=== PATIENT | male | born 1960 | race Caucasian/White ===

== ENCOUNTER 2018-03-25 18:18 | Emergency (ER) | payer MEDICAID ==
[~2018-03-25] VITALS: Ht 175.3 cm; Wt 88.5 kg
[2018-03-25 18:20] VITALS: BP 137/85
[2018-03-25] MEDS ORDERED: Ketorolac 30mg Inj IM ONE (18:30)
[2018-03-25] MEDS ORDERED: Methocarbamol 500mg tab ORAL ONE (18:30)
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
[2018-03-25] MEDS ORDERED: LIDOCAINE700 M1 TP (19:48)
[2018-03-25] MEDS ORDERED: TYLENOL EXTRA500 MG ORAL (19:48)
[2018-03-25] MEDS ORDERED: ROBAXIN500 MG PO (19:48)
[2018-03-25 20:00] VITALS: BP 130/60
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
== END 2018-03-25 20:03 | disposition home or self-care (01) ==
LOC: EDBD 18:18 → EMR 20:03
DX: S13.9XXA Sprain of joints and ligaments of unspecified parts of neck, initial encounter (principal); V43.52XA Car driver injured in collision with other type car in traffic accident, initial encounter; Y92.488 Other paved roadways as the place of occurrence of the external cause
CPT/HCPCS: 70450; 72125; 96372; 99284; J1885